=== PATIENT | female | born 1990 | race Caucasian/White ===

== ENCOUNTER 2016-06-03 12:11 | Emergency (ER) | payer OTHER, MEDICAID ==
--- NOTE | 2016-06-03 13:40 | ERNOTE ---
Back Pain ER HPI Date of Service: 06/03/16 Presenting Symptoms: injury/pain to back Time Seen by Provider: 06/03/16 13:26 Source: patient, RN notes reviewed Exam Limitations: no limitations Immunizations: IMMUNIZATION HX Immunizations Up to Date Yes History of Influenza Vaccine No Hx Pneumococcal Vaccination No Allergies/Adverse Reactions: Allergies acetaminophen [From Percocet] Allergy (Intermediate, Verified 06/03/16 12:25) Itching lidocaine Allergy (Intermediate, Verified 06/03/16 12:25) Itching oxycodone HCl [From Percocet] Allergy (Intermediate, Verified 06/03/16 12:25) Itching Home Medications: HOME MEDICATIONS NK [No Home Medication] 06/03/16 [Last Taken Unknown] Narrative: 25 y/o female ambulatory to the ED for back pain that began last evening. She has a history of prior back problems, but reports this was in her upper back. She is now having lumbar region back pain radiating into the right hip and leg. She is 24 weeks with her 2nd child. She denies any injury or any other associated symptoms. Timing: Reports: constant Quality/Severity: Reports: moderate, aching Location of pain: Reports: lower back, radiating to rt thigh/leg Activities at Onset: Reports: none Recent Injury?: Reports: no Possible Precipitating Factor: Reports: none Associated Symptoms: Denies: fever/chills, sweating, constipation/incontinence, nausea/vomiting, problems urinating, difficulty walking, lightheadedness, numbess/weakness in legs Prior Treament: Denies: similar symptoms before Review of Systems - Review of Systems Constitutional: Present: See HPI EYE: Present: no symptoms reported ENT: Present: no symptoms reported Respiratory: Absent: shortness of breath, cough Cardiology: Present: no symptoms reported Gastrointestinal/Abdominal: Absent: nausea, vomiting, diarrhea, constipation, abdominal pain, eating less, drinking less Genitourinary: Absent: frequency, dysuria, hematuria Musculoskeletal: Present: back pain. Absent: neck pain, joint pain Skin: Absent: rash, lesions Neurological: Absent: headache, dizziness/light-headedness, weakness, numbness, tingling Endocrine: Present: no symptoms reported Hematologic/Lymphatic: Present: no symptoms reported Psych: Present: no symptoms reported - Patient's Past Medical History Patient History - Medical: No pertinent hx Patient History - Cardiac/Respiratory: No pertinent hx Patient History - Cancer: No Hx of Cancer Patient History - Surgical Procedures: Ear Tubes, T & A Patient History - Other: None LMP (females 10-50): LMP (Calendar): 12/14/15 - Family History Mother Family History - Medical: No pertinent hx Family History - Cardiac/Respiratory: No pertinent hx Father Family History - Medical: No pertinent hx Family History - Cardiac/Respiratory: No pertinent hx - Social History Living Situations: home Abuse History: No History of abuse Psych History: Hx of Anxiety, Hx of Depression Smoking Status: Former smoker Alcohol Use: none Drug Use: none - Immunizations Immunizations Up to Date: Yes Hx Pneumococcal Vaccination: No History of Influenza Vaccine: No Physical Exam - Physical Exam General Appearance: Present: wd/wn, alert, no apparent distress Neck: Present: normal inspection, nontender, supple, full range of motion Respiratory: Present: no respiratory distress, normal breath sounds, no accessory muscle use, lungs clear Cardiovascular/Chest: Present: regular rate, rhythm, no murmur, normal peripheral pulses Gastrointestinal/Abdominal: Present: normal bowel sounds, nontender, soft, distended - gravid uterus Back Exam: Present: no CVA tenderness, no vertebral tenderness, other - lumbar region paraspinal tenderness Extremity Exam: Present: normal inspection, non-tender, no edema, normal range of motion Neurological Exam: Present: alert, oriented, normal mood/affect, no motor/ sensory deficits DTR: N=norm/NB=norm/brisk/A=abs/DD=dull/dimin/HC=hyperactive: Knee (R): Normal, Knee (L): Normal Skin Exam: Present: normal color, warm/dry ED Progress - Vital Signs Patient's Vital Signs:: I have reviewed the patient's vital signs. Vital Signs: Vital Signs 06/03/16 12:15 Temperature 36.9 C Pulse Rate 92 Respiratory 12 Rate Blood Pressure 127/63 O2 Sat by Pulse 99 Oximetry - Progress/Reassessment Chief Complaint: Back Pain Progress:: Unchanged Departure Clinical Impression: Back pain affecting in second trimester - Departure Disposition: Home Follow Up Needed Condition: Stable Instructions: Back Pain in , Form - Excuse from Work, School, or Physical Activity Additional Instructions: Tylenol for pain Ice/heat Contact Dr. Orosco if no improvement Referrals: Thee Orosco DO [Staff Physician] -
[2016-06-03 13:45] VITALS: BP 119/72
== END 2016-06-03 13:46 | disposition home or self-care (01) ==
LOC: ER 12:11
DX: M54.89 Other dorsalgia (principal); Z33.1 Pregnant state, incidental; Z3A.24 24 weeks gestation of pregnancy

== ENCOUNTER 2016-09-08 00:11 | Inpatient (IN) | payer OTHER, MEDICAID ==
[2016-09-08] MEDS ORDERED: RINGERS SOLUTION,LACTATED 1,000 ML IV ONE (01:05)
[2016-09-08] MEDS ORDERED: OXYTOCIN/DEXTROSE 5%-WATER 30 UNITS/500 ML BAG IV ONE ×2 (01:05→11:39)
[2016-09-08] MEDS ORDERED: LIDOCAINE HCL 50 ML VIAL PERI PRN (01:05)
[2016-09-08] MEDS ORDERED: NALOXONE HCL 1 MG/1 ML SYRG IV PRN (04:00)
[2016-09-08] MEDS ORDERED: fentaNYL CITRATE/PF 50 MCG/ML AMPUL IT SCH (04:00)
[2016-09-08] MEDS ORDERED: ONDANSETRON HCL/PF 2 MG/ML VIAL IV PRN (04:00)
[2016-09-08] MEDS ORDERED: BUPIVACAINE HCL/0.9 % NACL/PF 250 ML EP PRN (04:00)
[2016-09-08] MEDS: DEXTROSE 5%-LACTATED RINGERS 1,000 ML IV PRN ×2 (04:00→08:03)
--- NOTE | 2016-09-08 05:02 | OR ---
Anesthesia Procedure Note - Anesthesia Procedure Note Narrative: Vital Signs - Last Taken Temp 36.9 C 09/08/16 04:03 Pulse 90 09/08/16 04:03 Resp 16 09/08/16 04:03 BP 141/80 09/08/16 04:03 Pulse Ox 100 09/08/16 04:03 09/08/16 05:00 ANESTHESIA PROCEDURE NOTE Date of Procedure: 09/08/2016 Time of procedure: 0 4:30. Performed by: Farooq Pavon CRNA Memory Care Director: None. Preprocedure diagnosis: Active labor. Post procedure diagnosis: Same. Procedure: Insertion of labor epidural. Indications: The patient is a 26 -year-old multigravida female in active labor requesting labor epidural for pain management. Findings: See below. Details of the procedure: The patient was placed in a sitting position. Back was prepped with DuraPrep. Patient was then draped in a sterile fashion. Marcaine 0.5% was infiltrated to the skin and subcutaneous tissues at the level of the L3 4 interspace. Epidural insertion was initially attempted at the L2-3 interspace without success. The epidural space was identified using a 18-gauge Tuohy needle with [id number] technique. 20 mcg fentanyl was given intrathecally using a 27 ga. spinal needle. Epidural catheter was inserted without difficulty. No test dose was given because of a lidocaine allergy. The epidural catheter was then taped and secured in place. EBL: Minimal. Fluids: N/A. Specimen: N/A. Post procedure condition: The patient tolerated the procedure well. No complications were noted. Thank you for this consultation. Luo CRNA
[2016-09-08] MEDS ORDERED: HYDROCORTISONE 30 APPL TUBE TP PRN (11:39)
[2016-09-08] MEDS ORDERED: HYDROcodone/ACETAMINOPHEN 1 EACH TABLET PO PRN (11:39)
[2016-09-08] MEDS ORDERED: SENNOSIDES 8.6 MG TABLET PO PRN (11:39)
[2016-09-08] MEDS ORDERED: BISACODYL 10 MG SUPP.RECT RC PRN (11:39)
[2016-09-08] MEDS ORDERED: GLYCERIN/WITCH HAZEL LEAF 40 APPL BOX TP PRN (11:39)
[2016-09-08] MEDS ORDERED: BENZOCAINE/MENTHOL 81 SPRAY CAN TP PRN (11:39)
--- NOTE | 2016-09-08 11:41 | OR ---
Operative Report - Dictated Report Narrative: Spontaneous vaginal delivery of viable male at 1117 on 09/06/2016 with Apgars 8 and 9, weighing 3427 g in ROP position with tight nuchal cord 1 Cord clamping delayed approximately 1 minute Placenta delivered complete, intact, with three vessel cord Estimated blood loss: less than 50 ml Lacerations: Bilateral periurethral abrasions with no repair History for MU Definition: * The number of deliveries resulting in a live the patient experienced prior to current hospitalization * The previous delivery of live twins or any live multiple gestation is considered one live event. *If primagravida or nulliparous is documented select zero for the number of previous live births. Live Events: 1
[2016-09-08] MEDS: HYDROcodone/ACETAMINOPHEN 1 EACH TABLET PO PRN ×4 (12:09→21:45)
[2016-09-08] MEDS: IBUPROFEN 800 MG TABLET PO PRN ×2 (12:09→18:32)
[2016-09-08] MEDS: DOCUSATE SODIUM 100 MG CAPSULE PO SCH (21:07)
[2016-09-09] MEDS: IBUPROFEN 800 MG TABLET PO PRN ×4 (00:27→22:32)
[2016-09-09] MEDS: HYDROcodone/ACETAMINOPHEN 1 EACH TABLET PO PRN ×7 (00:48→22:32)
[2016-09-09] MEDS: DOCUSATE SODIUM 100 MG CAPSULE PO SCH ×2 (09:05→22:32)
--- NOTE | 2016-09-09 20:10 | PN ---
Subjective - Date and Time Seen Date: 09/09/16 Time: 20:09 Objective - Vitals Vitals: Last Vital Signs Temp 36.1 C L 09/09/16 18:46 Pulse 73 09/09/16 18:46 Resp 14 09/09/16 18:46 BP 132/77 09/09/16 18:46 Pulse Ox 99 09/09/16 18:46 Patient denies complaints. Lochia wnl Abdomen - soft, nontender Uterus - firm, at umbilicus - 1 No calf tenderness Impression: day #1 - s/p spontaneous vaginal delivery. Plan: Continue routine care Cauti Physician Documentation - Urinary Catheter Management Urethral ([place]) Date of Insertion: 09/08/16 Time of Insertion: 05:45 Date of Removal: 09/07/16 Time of Removal: 10:40
[2016-09-10] MEDS: HYDROcodone/ACETAMINOPHEN 1 EACH TABLET PO PRN ×2 (06:50→10:45)
[2016-09-10] MEDS: IBUPROFEN 800 MG TABLET PO PRN (06:50)
[2016-09-10 07:19] VITALS: BP 146/88
[2016-09-10] MEDS: DOCUSATE SODIUM 100 MG CAPSULE PO SCH (10:45)
--- NOTE | 2016-09-11 11:07 | PN ---
Progess Note - Interim Narrative: 09/11/16 11:07 Patient seen yesterday a.m. but unable to document note due to [employer] being down. Patient denies complaints. Lochia wnl Abdomen - soft, nontender Uterus - firm, at umbilicus - 2 No calf tenderness Impression: day #2 - s/p spontaneous vaginal delivery. Plan: Routine discharge instructions
== END 2016-09-10 12:35 | disposition home or self-care (01) | DRG 775 ==
LOC: OBCLINIC 00:11 → OB 00:30
PROVIDERS: ADMIT Obstetrics & Gynecology; ATTEND Obstetrics & Gynecology
PROC: 10E0XZZ Delivery of Products of Conception, External Approach (ICD-10-PCS; principal; 2016-09-08)
PROC: 4A1HXCZ Monitoring of Products of Conception, Cardiac Rate, External Approach (ICD-10-PCS; 2016-09-08)
PROC: 3E0S3CZ (ICD-10-PCS; 2016-09-08)
DX: O99.02 Anemia complicating childbirth (principal); Z68.41 Body mass index [BMI] 40.0-44.9, adult; O69.1XX0 Labor and delivery complicated by cord around neck, with compression, not applicable or unspecified; D50.8 Other iron deficiency anemias; O99.214 Obesity complicating childbirth; E66.01 Morbid (severe) obesity due to excess calories; F41.8 Other specified anxiety disorders; Z3A.38 38 weeks gestation of pregnancy; Z37.0 Single live birth